=== PATIENT | female | born 1930 | race African-American/Black ===

== ENCOUNTER 2016-11-01 19:23 | Emergency (ER) | payer OTHER ==
[~2016-11-01] VITALS: Ht 162.6 cm; Wt 67.9 kg
[~2016-11-01 19:23] MED LIST changes: -LIDODERM 5% P1 PATCH TD
[2016-11-01] MEDS ORDERED: PERCOCET 5/31 TABLET PO (22:27)
[2016-11-01] MEDS ORDERED: LIDODERM 5% P1 PATCH TD (22:27)
[2016-11-01 23:40] VITALS: BP 141/92
== END 2016-11-01 23:59 ==
LOC: EME 19:23
DX: S32.029A Unspecified fracture of second lumbar vertebra, initial encounter for closed fracture (principal); W19.XXXA Unspecified fall, initial encounter; J44.9 Chronic obstructive pulmonary disease, unspecified; E78.5 Hyperlipidemia, unspecified; I10 Essential (primary) hypertension; F03.90 Unspecified dementia, unspecified severity, without behavioral disturbance, psychotic disturbance, mood disturbance, and anxiety; Z87.891 Personal history of nicotine dependence; Z79.82 Long term (current) use of aspirin
CPT/HCPCS: 99281; 99284

== ENCOUNTER → 2016-11-01 | Outpatient (CLI) | payer OTHER ==
[~2016-11-01] MED LIST: ALAVERT10 MG PO; ALEVE220 MG PO; AMLODIPINE; AMLODIPINE BESYL5 MG PO; ANAPROX DS550 M1 PO; ARICEPT10 MG PO; ASPERDRINK81 MG PO; ASPIR 8181 M1 PO; ASPIR 8181 MG PO; ASPIR-LOW81 MG; ATROVENT 0.06%15 ML BOTH NARES; CEFTIN500 MG PO; CENTRUM SILVER1 EAC1 PO; CENTRUM SILVER1 EAC3; CENTRUM SILVER1 EAC3 PO; CLOPIDOGREL PO; COLACE100 MG PO; COMBIVENT RESPIM4 GM IH; COMBIVENT200 INHALA PO; CYANOCOBALAM1000 MCG PO; Combivent IH; DELTASONE10 MG PO; DITROPAN XL5 MG PO; DITROPAN5 MG PO; DOCUSATE SODIU100 MG PO; DONEPEZIL HCL10 M1 PO; DONEPEZIL HCL10 MG PO; DUONEB 2.5-0.5 M3 ML AEROSOL; DUONEB 2.5-0.5 M3 ML IH; ENDOCET 5-3251 EACH PO; FUROSEMIDE20 MG PO; GABAPENTIN100 MG PO; HYDROCHLOROTHIA25 MG PO; Hydrodiuril,Oretic,E PO; IRON325 M1 PO; IRON325 MG PO; KEFLEX500 MG PO; LIDODERM 5% P1 PATCH TD; LISINOPRIL20 MG PO; LISINOPRIL5 MG PO; LOPRESSOR25 MG PO; LORTAB 10-3251 EACH PO; MACRODANTIN100 MG PO; MELATONIN3 MG PO; METOPROLOL SUCC50 MG PO; MICRO-K,K-DUR,10 ME1 PO; MICRO-K10 ME2 PO; MOBIC7.5 MG PO; MOTRIN400 MG PO; NAMENDA PO; NAMENDA10 MG PO; NAPROXEN375 MG PO; NASONEX17 GM NS; NORVASC5 MG PO; OXYBUTYNIN CHLOR5 M1 PO; PANTOPRAZOLE SO40 MG PO; PERCOCET 5/31 TABLET PO; PLAVIX75 MG PO; POTASSIUM CHLO20 ME2 PO; PRAVACHOL20 MG PO; PRAVASTATIN SOD20 MG PO; PRAVASTATIN SODIUM PO; PREDNISONE20 MG PO; SEPTRA DS TABL1 EACH PO; TYLENOL EXTRA500 MG PO; TYLENOL WITH C1 EACH PO; Toprol XL PO; ULTRAM50 MG PO; VALIUM5 MG PO; VITAMIN B-121000 MC1 SL; VITAMIN B12 PO; VITAMIN B12-FO1 EACH PO; VITAMIN D3; VITAMIN D31000 UNI2 PO; VITAMIN D31000 UNIT PO
== END | disposition home or self-care (01) ==
LOC: RAD 12:48
DX: S32.028A Other fracture of second lumbar vertebra, initial encounter for closed fracture (principal); M47.816 Spondylosis without myelopathy or radiculopathy, lumbar region; W19.XXXA Unspecified fall, initial encounter
CPT/HCPCS: 72131

== ENCOUNTER 2016-12-01 12:48 | Inpatient (IN) | payer OTHER ==
[~2016-12-01] VITALS: Ht 162.6 cm; Wt 56.8 kg
[~2016-12-01 12:48] MED LIST changes: +LIDODERM 5% P1 PATCH TD
[2016-12-01 14:58] LABS: HEMATOCRIT 39.8 % (36.0-46.0); MCH 29.9 PG (29.0-34.0); MCHC 32.2 G/DL (30.0-36.0); MEAN PLAT.VOLUME 9.3 uM^3 (9.5-12.4); PLATELET COUNT 321 K/uL (156-360); RBC DIS.WIDTH-CV 13.1 % (11.8-14.6); RBC DIS.WIDTH-SD 44.7 % (39-53); RED BLOOD COUNT 4.28 M/uL (3.80-5.20); WHITE BLOOD COUNT 7.3 K/uL (4.1-10.2)
[2016-12-01 15:07] LABS: CHLORIDE 108 mEq/L (99-109); POTASSIUM 3.8 mEq/L (3.7-5.4); SODIUM 142 mEq/L (136-147)
[2016-12-01 15:09] LABS: GLUCOSE 99 mg/dL (70-99)
[2016-12-01 15:10] LABS: ANION GAP 8 MEQ/L (2-14)
[2016-12-01 15:12] LABS: TOTAL BILIRUBIN 0.4 mg/dL (0.0-1.0)
[2016-12-01 15:13] LABS: ALKALINE PHOSPHATASE 89 IU/L (3-129); GFR ESTIMATE (CALCULATED) > 59 mL/min/
[2016-12-01 15:14] LABS: UREA NITROGEN (BUN) 17 mg/dL (9-23)
[2016-12-01 15:21] LABS: TROP-I INTERPRETATION NEGATIVE; TROPONIN-I < 0.01 ng/mL (0.0-0.30)
[2016-12-01] MEDS ORDERED: LISINOPRIL5 MG PO (16:42)
[2016-12-01] MEDS ORDERED: SALINE NASAL SP45 ML BOTH NARES (16:44)
[2016-12-01] MEDS ORDERED: CRANBERRY405 MG PO (16:44)
[2016-12-01] MEDS ORDERED: LORATADINE10 M2 PO (16:45)
[2016-12-01] MEDS ORDERED: DETROL LA4 MG PO (16:46)
[2016-12-01] MEDS ORDERED: PERCOCET 5/31 TABLET PO (16:47)
[2016-12-01] MEDS ORDERED: AYR SALINE50 ML BOTH NARES (16:48)
[2016-12-01 19:32] VITALS: BP 181/86
[2016-12-01 20:47] VITALS: BP 203/93
[2016-12-01 22:04] VITALS: BP 176/97
[2016-12-01 22:30] VITALS: BP 127/73
[2016-12-02 00:11] VITALS: BP 128/71
[2016-12-02 03:39] VITALS: BP 119/74
[2016-12-02 08:21] VITALS: BP 158/80
[2016-12-02 16:47] VITALS: BP 164/82
[2016-12-02 20:04] VITALS: BP 152/89
[2016-12-02 23:32] VITALS: BP 178/91
[2016-12-03 04:52] VITALS: BP 145/79
[2016-12-03 08:24] VITALS: BP 134/92
[2016-12-03 12:30] VITALS: BP 166/84
[2016-12-03 17:37] VITALS: BP 130/88
[2016-12-03 19:30] VITALS: BP 151/86
[2016-12-03 23:07] VITALS: BP 132/80
[2016-12-04] VITALS (7 sets, daily range): BP systolic 110–167; BP diastolic 57–101
[2016-12-04 22:13] LABS: ADD MIUA? YES; BILIRUBIN NEGATIVE; BLOOD NEGATIVE; COLOR YELLOW ((YELLOW)); GLUCOSE (STRIP) NEGATIVE; KETONES NEGATIVE; LEUKOCYTES MODERATE; NITRITE NEGATIVE; PROTEIN (STRIP) NEGATIVE; SPECIFIC GRAVITY 1.002 (1.000-1.030); UROBILINOGEN 0.2 MG/DL (0.2-1.0)
[2016-12-04 22:35] LABS: BACTERIA NONE SEEN /HPF; CASTS NONE SEEN /LPF; CRYSTALS NONE SEEN; EPITHELIAL CELLS NONE SEEN /HPF; MUCUS NONE SEEN /LPF; RED BLOOD CELLS RARE /HPF (0-5); UCUL ADDED? NO; WHITE BLOOD CELLS RARE /HPF (0-5)
[2016-12-05 04:04] VITALS: BP 151/80
[2016-12-05 08:06] VITALS: BP 129/76
[2016-12-05 11:51] VITALS: BP 135/79
[2016-12-05 16:38] VITALS: BP 135/60
== END 2016-12-05 19:46 | DRG 563 ==
LOC: EME 12:48 → 3EAST 17:15 → EDOF 17:15 → 3EAST 18:08
PROVIDERS: Emergency Medicine; Internal Medicine
PROC: 2W3AX1Z Immobilization of Right Upper Arm using Splint (ICD-10-PCS; principal; 2016-12-01)
DX: S52.532A Colles' fracture of left radius, initial encounter for closed fracture (principal); S40.012A Contusion of left shoulder, initial encounter; J44.9 Chronic obstructive pulmonary disease, unspecified; F02.80 Dementia in other diseases classified elsewhere, unspecified severity, without behavioral disturbance, psychotic disturbance, mood disturbance, and anxiety; G30.9 Alzheimer's disease, unspecified; S42.202D Unspecified fracture of upper end of left humerus, subsequent encounter for fracture with routine healing; I10 Essential (primary) hypertension; E78.5 Hyperlipidemia, unspecified; M19.049 Primary osteoarthritis, unspecified hand; D64.9 Anemia, unspecified; Z85.118 Personal history of other malignant neoplasm of bronchus and lung; Z87.891 Personal history of nicotine dependence; Z90.2 Acquired absence of lung [part of]
CPT/HCPCS: 70450; 73060; 73090; 73110; 73130; 73200; 80053; 81003; 84484; 85027; 93005; 97530 GP; 99202; 99281; 99285